=== PATIENT | male | born 1995 | race Caucasian/White ===

== ENCOUNTER 2020-06-01 09:42 | Emergency (ER) | payer BC | END 2020-06-01 12:30 | disposition home or self-care (01) | LOC: ER1 09:42 | DX: S02.642B Fracture of ramus of left mandible, initial encounter for open fracture (principal); S02.601B Fracture of unspecified part of body of right mandible, initial encounter for open fracture; M79.642 Pain in left hand; W22.8XXA Striking against or struck by other objects, initial encounter | CPT/HCPCS: 70450; 70486; 73130; 99284 ==

== ENCOUNTER 2020-12-27 11:10 | Emergency (ER) | payer OTHER ==
[2020-12-27] MEDS ORDERED: BENADRYL 25MG C25 MG PO (12:42)
[2020-12-27] MEDS ORDERED: MEDROL4 MG PO (12:42)
== END 2020-12-27 12:53 | disposition home or self-care (01) ==
LOC: ER1 11:10
DX: L23.7 Allergic contact dermatitis due to plants, except food (principal)
CPT/HCPCS: 96372; 96374; 99282; J1200; J2930